=== PATIENT | female | born 1955 | race African-American/Black ===

== ENCOUNTER → 2021-04-26 | Day surgery (SDC) | payer OTHER ==
[~2021-04-26] MED LIST: APPLE CIDER VI300 MG PO; CALCIUM PO; COD LIVER OIL1 EAC1 PO; FENTANYL CITRATE/PF 100MCG/2 ML INJ ONE; FLAXSEED1000 MG PO; GARLIC1 EAC1 PEG; MAGNESIUM PO; MIDAZOLAM HCL 2 MG/2 ML VIAL ONE; MULTI-VITAMIN1 EACH PO; OMEGA 3 1,0001 EACH PO; OR PHACO EYE KIT ONE; PREOP PHACO EYE KIT ONE; TYLENOL325 MG PO; VITAMIN B122500 MCG PO; VITAMIN C1000 MG PO; VITAMIN D3 PO; [UNRECOGNIZED DRUG - OTHER]
[2021-04-26 13:15] VITALS: BP 161/82
== END | disposition home or self-care (01) ==
LOC: OR 10:25
PROVIDERS: ATTEND Ophthalmology
DX: H25.11 Age-related nuclear cataract, right eye (principal); E66.01 Morbid (severe) obesity due to excess calories; Z88.6 Allergy status to analgesic agent; Z20.822 Contact with and (suspected) exposure to COVID-19
CPT/HCPCS: J2250; J3010; U0002

== ENCOUNTER → 2021-05-10 | Day surgery (SDC) | payer OTHER ==
[~2021-05-10] MED LIST changes: +LIDOCAINE HCL 1% 2 ML AMP ONE; +NEOMYCIN/POLYMYXIN/DEX (OPTH) 3.5 GM TUBE ONE; +POVIDONE IODINE 5% (OPTH) 30 ML BTL ONE
[2021-05-10 14:45] VITALS: BP 140/70
== END | disposition home or self-care (01) ==
LOC: OR 12:38
PROVIDERS: ATTEND Ophthalmology
DX: H25.042 Posterior subcapsular polar age-related cataract, left eye (principal); H25.12 Age-related nuclear cataract, left eye; E66.01 Morbid (severe) obesity due to excess calories; Z20.822 Contact with and (suspected) exposure to COVID-19; Z88.6 Allergy status to analgesic agent
CPT/HCPCS: J2001; J2250; J3010; U0002